=== PATIENT | male | born 1995 | race Caucasian/White ===

== ENCOUNTER 2025-05-18 19:22 | Emergency (ER) | payer SELFPAY ==
[2025-05-18] VITALS (29 sets, daily range): BP systolic 112–123; BP diastolic 69–87; PULSE 69–96; RESP 11–39; TEMP 36.6; O2SAT 95–100
--- NOTE | 2025-05-18 19:45 | DI.CT_ITS ---
Exam(s) CT ABDOMEN PELVIS W EXAM: CT ABDOMEN PELVIS W CLINICAL HISTORY: Abdominal pain, Constipation, Vomiting. TECHNIQUE: Imaging Protocol: Axial computed tomography images with coronal and sagittal reformatted images were created and reviewed CONTRAST MATERIAL: Intravenous: Omnipaque 350 Contrast volume:75 ml Oral: no COMPARISON: No exams were available for comparison FINDINGS: ABDOMEN and PELVIS: Lung Bases: No acute findings. Liver: Normal density. No suspicious mass. Gallbladder and biliary tract: No radiodense calculus. No wall thickening or pericholecystic fluid. No biliary dilation. Pancreas: Normal density. No abnormal calcifications or inflammatory process. No evidence of mass. Spleen: Normal. Kidneys: Normal size, contour and axis. No radiodense stones. No obstructive uropathy. No suspicious masses seen. Adrenal glands: No masses seen. Vasculature: Abdominal aorta non-dilated. Soft tissues: Unremarkable. Bladder: No gross wall thickening. No calculi.No focal mass. Bowel: No obstruction. No bowel wall thickening. Appendix normal. Moderate quantity of stool. Peritoneal cavity: No ascites. No focal collection. No mesenteric inflammatory response. No free air. Bones: Mild degenerative disc changes L5-S1. Reproductive organs: Unremarkable. Lymph nodes: No pathologically enlarged lymph nodes. IMPRESSION:: No acute abnormality in the abdomen or pelvis. The preliminary [facility] report was reviewed. RADIATION DOSE DELIVERED: 258.58mGy.cm Total DLP DATA REPOSITORY: All CT scans at this facility are submitted to the National Radiology Data Registry (NRDR) Dose Index Registry (DIR) with the [employer] (ACR). RADIATION OPTIMIZATION: All CT scans at this facility use at least one of these dose optimization techniques: automated exposure control; mA and/or kV adjustment per patient size (includes targeted exams where dose is matched to clinical indication); or iterative reconstruction.
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
[2025-05-18] MEDS: Normal Saline 1,000 ML 1000 ML IV (20:05)
[2025-05-18 20:06] LABS: Abs Immature Grans 0.04 10^3/uL (0.0-0.06); HCT 45.9 % (40.0-50.0); HGB 15.9 g/dL (13.5-17.5); Immature Grans % 0.4 %; MCH 29.2 pg (27.0-33.0); MCHC 34.6 % (32.0-36.0); MCV 84 fL (80-95); MPV 9.8 fL (8.0-11.0); Platelet Count 315 10^3/uL (130-400); RBC 5.44 10^6/uL (4.36-5.78); RDW 13.1 % (11.8-14.1); RDW-SD 40.2 fL; WBC 11.27 10^3/uL (4.4-10.8)
[2025-05-18] MEDS: Ondansetron 4 MG/2 ML VIAL IVP (20:06)
[2025-05-18] MEDS: FAMOTIDINE 20 MG in Normal Saline 100 ML 400 MG IVPB (20:07)
[2025-05-18 20:25] LABS: ALT 18 U/L (16-63); AST 11 U/L (15-37); Albumin 4.0 g/dL (3.4-5.0); Alkaline Phosphatase 94 U/L (46-116); Anion Gap 10.0 mmol/L (3-11); BUN 12 mg/dL (7-18); Bilirubin, Total 1.1 mg/dL (0.2-1.0); CO2 28.0 mmol/L (21.0-32.0); Calcium 9.1 mg/dL (8.5-10.1); Chloride 101 mmol/L (98-107); Estimated GFR 120.05 (mL/min/1.73m2); Glucose 109 mg/dL (74-106); Magnesium 2.0 mg/dL (1.8-2.4); Sodium 139 mmol/L (136-145); Total Protein 7.3 g/dL (6.4-8.2)
[2025-05-18 20:27] LABS: Potassium 2.9 mmol/L (3.5-5.1)
[2025-05-18] MEDS: Omnipaque 350 MG/ML 100 ML BTL IJ (20:34)
[2025-05-18] MEDS: Normal Saline Flush 10 ML SYR IVP (20:36)
[2025-05-18] MEDS: Normal Saline - Diluent 50 ML VIAL IJ (20:36)
[2025-05-18] MEDS: POTASSIUM CHLORIDE 10 MEQ/100 ML BAG 100 MEQ IV_INF (20:45)
--- NOTE | 2025-05-18 21:22 | DI.[facility]_ITS ---
PROCEDURE INFORMATION: Exam: CT Abdomen And Pelvis With Contrast Exam date and time: 05/18/2025 8:28 PM Age: 29 years old Clinical indication: Constipation and vomiting; Abdominal pain; Generalized; Abd pain, constipation, vomiting TECHNIQUE: Imaging protocol: Computed tomography of the abdomen and pelvis with contrast. Radiation optimization: All CT scans at this facility use at least one of these dose optimization techniques: automated exposure control; mA and/or kV adjustment per patient size (includes targeted exams where dose is matched to clinical indication); or iterative reconstruction. Contrast material: OMNIPAQUE 350; Contrast volume: 75 ml; Contrast route: INTRAVENOUS (IV); COMPARISON: No relevant prior studies available. FINDINGS: Lungs: Lung bases clear. Liver: Normal appearing liver. Gallbladder and biliary ducts: Normal appearing gallbladder. No calcified gallstones. No biliary dilatation. Pancreas: Normal appearing pancreas. Spleen: Normal appearing spleen. Adrenal glands: Normal appearing adrenal glands. Kidneys and ureters: Normal appearing kidneys. No hydronephrosis. No obstructing ureteral stones. Stomach and bowel: No oral contrast. Stomach partially decompressed. No small bowel dilatation to suggest obstruction. Normal-appearing colon. No evidence of diverticulitis or colitis. Appendix: Normal appendix. Intraperitoneal space: No gross ascites or free air. Vasculature: Normal caliber abdominal aorta. Lymph nodes: No pathologically enlarged mesenteric, retroperitoneal, or pelvic sidewall lymph nodes. Urinary bladder: Urinary bladder partially collapsed but grossly unremarkable, as seen. Reproductive: Normal-appearing prostate gland and seminal vesicles. Bones/joints: No acute fracture seen among the bones of the abdomen or pelvis. Moderate discogenic degeneration at L5-S1. Soft tissues: No significant ventral or inguinal hernia. IMPRESSION: No acute bowel pathology demonstrated. Normal-appearing fecal material in the colon, relatively well evacuated distally. Dictated and Authenticated by: Tad Dumont MD. Orderin Cari Knox MD
[2025-05-18 22:00] LABS: Cannabinoids THC Positive (Negative); METHADONE URINE SCREEN Negative (Negative)
[2025-05-18] MEDS: Sucralfate 1 GM TAB PO (23:28)
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
[2025-05-19] MEDS: Nicotine 7 MG/24 HR PATCH TD (01:00)
--- NOTE | 2025-05-19 14:49 | CMSP_ITS ---
Care Management Safety Plan Status Status: Voluntary Reason for Wait Reason for Wait: Inpatient Admission Safety Plan Safety Plan: VOLUNTARY FOR INPATIENT PSYCHIATRIC STABILIZATION.? Patient is appropriate in all interactions since arriving at [facility]; Pt has demonstrated appropriate coping and communication skills, has articulated his needs and concerns and is fully engaged during staff interactions. Safety plan has been established with patient, and care team, to adhere to patient goals, identify restrictions based on behavioral status, address nutrition, and determine allowed personal belongings, tools for hygiene and personal care. Determine level of activity including ambulation, level of supervision, visitors, and determine privileges based on behaviors and level of engagement by pt. VOLUNTARY SAFETY PLAN: 1. Will remain on suicide precautions, in paper clothes 2. Will remain in Zone B under direct supervision of one-on-one staff at all times provided by [employer]; DAYTON, CIVILIAN TECHNICIAN senior net software engineer. 3. May have paper cups, plates, finger foods as well as a cardboard spoon with which to eat meals. 4. Follow [facility] Management of the Admitted Behavioral Health Patient policy. 5. Shower available in Zone B without restriction. 6. Personal belongings-soft items permitted at RN discretion. 7. Visitors-aunt, mother and girlfriend may visit at nursing discretion. 8. Activities: soft cart items, hospital tablets (Netflix/[place]+/music) approved per RN discretion. 9.? Bathroom available in Zone B without restriction. 10. Phone: limited to aunt, mother and girlfriend on [facility] cordless phone at RN discretion. Due to VOLUNTARY status, if patient wishes to leave [facility], staff will contact [facility] Crisis Screener ([phone]) and Buffing Line Set Up Worker ([phone]) as soon as possible. In the event of elopement, notify [facility] Police ([phone]). Patient is currently voluntarily at [facility] and seeking inpatient admission when a bed becomes available. [facility] Frontline Work Environment Safety Inspector will continue seeking placement. Please contact the Buffing Line Set Up Worker ([phone]) and [facility] Work Environment Safety Inspector ([phone]) for any needed changes in the Safety Plan. Safety plan has been provided to interdepartmental care team.
--- NOTE | 2025-05-19 14:49 | PDOC.CMSAFE ---
Care Management Safety Plan Status Status: Voluntary Reason for Wait Reason for Wait: Inpatient Admission Safety Plan Safety Plan: VOLUNTARY FOR INPATIENT PSYCHIATRIC STABILIZATION.? Patient is appropriate in all interactions since arriving at [facility]; Pt has demonstrated appropriate coping and communication skills, has articulated his needs and concerns and is fully engaged during staff interactions. Safety plan has been established with patient, and care team, to adhere to patient goals, identify restrictions based on behavioral status, address nutrition, and determine allowed personal belongings, tools for hygiene and personal care. Determine level of activity including ambulation, level of supervision, visitors, and determine privileges based on behaviors and level of engagement by pt. VOLUNTARY SAFETY PLAN: 1. Will remain on suicide precautions, in paper clothes 2. Will remain in Zone B under direct supervision of one-on-one staff at all times provided by [employer]; DAYTON, PLANT CONTROL AIDE head inspector. 3. May have paper cups, plates, finger foods as well as a cardboard spoon with which to eat meals. 4. Follow [facility] Management of the Admitted Behavioral Health Patient policy. 5. Shower available in Zone B without restriction. 6. Personal belongings-soft items permitted at RN discretion. 7. Visitors-aunt, mother and girlfriend may visit at nursing discretion. 8. Activities: soft cart items, hospital tablets (Netflix/[place]+/music) approved per RN discretion. 9.? Bathroom available in Zone B without restriction. 10. Phone: limited to aunt, mother and girlfriend on [facility] cordless phone at RN discretion. Due to VOLUNTARY status, if patient wishes to leave [facility], staff will contact [facility] Crisis Screener ([phone]) and Assistant Manager Pt ([phone]) as soon as possible. In the event of elopement, notify [facility] Police ([phone]). Patient is currently voluntarily at [facility] and seeking inpatient admission when a bed becomes available. [facility] Frontline Applications Support Specialist will continue seeking placement. Please contact the Assistant Manager Pt ([phone]) and [facility] Applications Support Specialist ([phone]) for any needed changes in the Safety Plan. Safety plan has been provided to interdepartmental care team.
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
== END 2025-05-19 18:41 | disposition home or self-care (01) ==
PROVIDERS: Registered Nurse Emergency; Emergency Provider Emergency Medicine
DX: E87.6 Hypokalemia (principal); F32.A Depression, unspecified; R45.851 Suicidal ideations; K29.20 Alcoholic gastritis without bleeding
CPT/HCPCS: 99285; 99284; 96375; 00123; 80053; 80307; 96127; 96365; 96367; G0378; 74177; 80320; 83735; 85025; J2405; J3480; J3490